=== PATIENT | male | born 1970 | race Two or more races ===

== ENCOUNTER 2016-12-28 13:13 | Emergency (ER) | payer OTHER ==
[~2016-12-28] VITALS: Ht 180.3 cm; Wt 117.0 kg
[~2016-12-28 13:13] MED LIST: ALBU25PO2; CLON0.5T3 PO; CLON1TAB3 PO; DIAZ2TAB PO; DIAZ2TAB3 PO; DIAZ5TAB4 PO; FLUT1DIS3; FLUT1DIS3 IH; HYDR12.58 PO; HYDR4TAB PO; LORA1TAB; LORA1TAB PO; LURA60TA PO; METF850T2 PO; METH10TA; METH10TA2 PO; METH40TA3 PO; NAPR250T; NICO1PAT2 TP; OXYC15TA PO; OXYC5TAB PO; PANT40GR; PANT40TA3 PO; POLY17PO5 PO; PRED20TA PO; VENTOLIN HFA18 GM; VENTOLIN HFA18 GM IH
[2016-12-28 13:27] VITALS: BP 139/84
--- NOTE | 2016-12-28 13:39 | PHYS DOC ---
Past Medical History Past Medical History: Bipolar, COPD, Depression, Diabetes-Type II, Diverticulitis, Heart Disease, Hypertension, Schizophrenia, Other Additional Past Medical Histor: chronic back pain, brain lesions, abdominal hernia Past Surgical History: Colectomy, Other Additional Past Surgical Histo: back surgery, ABD SX, BRAIN SX, Alcohol Use: None Drug Use: None Adult General Chief Complaint Chief Complaint: FLU SYMPTOM HPI HPI Patient is a 46 year old male who presents emergency room with complaint of an ongoing headache for approximately one and a half weeks. Patient denies any head injuries. He states that he does not take anticoagulant.. Reports that he has tenderness to palpation to the top of his head and extends down into his neck. He denies fevers or chills. Patient has been hospitalized within the past 30 days [facility] for healthcare acquired pneumonia. He was discharged approximately 2 weeks ago states she's been convalescing without difficulty. Patient states he saw his primary care doctor yesterday and was told that it was "stress related". He states that it seems to be "something else ". He does have a previous history of subdural hematoma. He denies previous craniotomies. Review of Systems Review of Systems Constitutional: Denies fever or chills [] Eyes: Denies change in visual acuity, redness, or eye pain [] HENT: Denies nasal congestion or sore throat [] Respiratory: Denies cough or shortness of breath [] Cardiovascular: No additional information not addressed in HPI [] GI: Denies abdominal pain, nausea, vomiting, bloody stools or diarrhea [] : Denies dysuria or hematuria [] Musculoskeletal: Denies back pain or joint pain [] Integument: Denies rash or skin lesions [] Neurologic: Denies headache, focal weakness or sensory changes [] Endocrine: Denies polyuria or polydipsia [] Current Medications Current Medications Current Medications Medications (Trade) Dose Ordered Sig/[facility] Start Time Stop Time Status Last Admin Dose Admin Diazepam (Valium) 10 mg 1X ONCE 12/28/16 13:45 12/28/16 13:46 DC 12/28/16 13:44 10 MG Ketorolac Tromethamine (Toradol Im) 60 mg 1X ONCE 12/28/16 13:45 12/28/16 13:46 DC 12/28/16 13:44 60 MG Allergies Allergies Allergies Coded Allergies Type Severity Reaction Last Updated Verified Latex, Natural Rubber Allergy Severe rash 07/22/15 Yes Haloperidol Lactate Allergy Intermediate 07/22/15 Yes Penicillins Allergy Intermediate 07/22/15 Yes adhesive Allergy Intermediate 07/22/15 Yes fentanyl Allergy Intermediate 07/22/15 Yes fish derived Allergy Intermediate SALMON 07/22/15 Yes haloperidol Allergy Intermediate 07/22/15 Yes iodine Allergy Intermediate rash 11/09/15 Yes latex Allergy Intermediate 07/22/15 Yes morphine Allergy Intermediate DILAUDID OK 07/22/15 Yes povidone-iodine Allergy Intermediate Pt only has allergy to topical iodine. He has had iv iodine 07/22/15 Yes Physical Exam Physical Exam Constitutional: Well developed, well nourished,mild distress, non-toxic appearance. Patient is afebrile. HENT: Normocephalic, atraumatic, bilateral external ears normal, oropharynx moist, no oral exudates, nose normal. Patient complains of tenderness to his frontal sinus region as well as scalp extending from his anterior hairline to the occipital region and down into his neck. Is no palpable defect appreciated. Eyes: PERRLA, EOMI, conjunctiva normal, no discharge. [] Neck: Normal range of motion, no tenderness, supple, no stridor. Negative Brudzinski's. To palpation to bilateral superior trapezius muscles from insertion of the occiput inferiorly to the masses. Trapezius. There is no palpable defect, deformity or spasm. There is no midline tenderness. Cardiovascular:Heart rate regular rhythm, no murmur [] Lungs & Thorax: Bilateral breath sounds clear to auscultation [] Abdomen: Bowel sounds normal, soft, no tenderness, no masses, no pulsatile masses. [] Skin: Warm, dry, no erythema, no rash. Back: No tenderness, no CVA tenderness. [] Extremities: No tenderness, no cyanosis, no clubbing, ROM intact, no edema. [] Neurologic: Alert and oriented X 3, cranial nerves II through XII are intact. Patient is able rapid alternating movement and [id number] without difficulty. Romberg is negative for pronator drift. Patient ambulates with a cane due to left knee pain. Psychologic: Affect normal, judgement normal, mood normal. [] Current Patient Data Vital Signs Vital Signs Date Time Temp Pulse Resp B/P Pulse Ox O2 Delivery O2 Flow Rate FiO2 12/28/16 13:27 98.0 83 22 139/84 94 Room Air 98.0 EKG EKG [] Radiology/Procedures Radiology/Procedures Noncontrast CT scan of patient's head was performed with adequate technique and interpreted by the radiologist. There is no evidence of acute intracranial process. There is mucosal thickening of the sphenoid and ethmoid sinuses but no evidence of perinasal sinusitis. Course & Med Decision Making Course & Med Decision Making Pertinent Labs and Imaging studies reviewed. (See chart for details) [] Dragon Disclaimer Dragon Disclaimer This electronic medical record was generated, in whole or in part, using a voice recognition dictation system. Departure Departure Impression: Primary Impression: Tension headache Additional Impression: Sinusitis Disposition: HOME, SELF-CARE Condition: GOOD Referrals: NO PCP (PCP) Patient Instructions: Sinusitis, [id number], Tension Headache, [id number] Additional Instructions: 1. The CT scan of your head shows no abnormalities to your brain are within your skull. There is some thickening of your sinuses. 2. Take the medication as prescribed. You can also use [id number] Afrin nasal spray twice a day for the next 3 days to help open your sinuses up. You can also take xjly-ldr-vvutdsa Mucinex D twice a day. 3. Review the discharge instructions provided for self-care and reasons to return to the emergency department. 4. Contact your primary care doctor's office this afternoon or Saturday to schedule follow-up appointment for reevaluation by midweek next week. Scripts Cyclobenzaprine Hcl 10 Mg Tablet1 Tab PO QHS muscle relaxer #21 TAB Prov:YAKOV GILBERT 12/28/16 Butalb/Acetaminophen/Caffeine (Fioricet 50-300-40 Mg Capsule)1 Each Capsule2 Each PO Q6HRS PRN HEADACHE #20 CAP Prov:YAKOV GILBERT 12/28/16 Problem Qualifiers YAKOV GILBERT Dec 28, 2016 13:39
[2016-12-28] MEDS ORDERED: DIAZEPAM 10 MG/2 ML DISP.SYRIN. IM ONE (13:45)
[2016-12-28] MEDS ORDERED: KETOROLAC TROMETHAMINE 60 MG/2 ML SYRINGE. IM ONE (13:45)
--- NOTE | 2016-12-28 14:12 | RAD ---
CT of the head without contrast, 12/28/2016: History: Headache Comparison is made to a study from 06/18/2015. The ventricles are within normal limits in size. There is no shift of the midline structures. There is no evidence of acute intracranial hemorrhage or mass effect. There is a unchanged calvarial defect in the left frontoparietal region which is likely postsurgical. There is mild mucosal thickening in the left sphenoid and both ethmoid sinuses. No free fluid is evident in the paranasal sinuses. IMPRESSION: No acute intracranial abnormality is detected. PQRS Compliance Statement: One or more of the following individualized dose reduction techniques were utilized for this examination: 1. Automated exposure control 2. Adjustment of the mA and/or kV according to patient size 3. Use of iterative reconstruction technique
[2016-12-28] MEDS ORDERED: BUTA1CAP29 PO (14:27)
[2016-12-28] MEDS ORDERED: CYCL10TA2 PO (14:27)
== END 2016-12-28 14:33 | disposition home or self-care (01) ==
LOC: ER 13:13
DX: G44.209 Tension-type headache, unspecified, not intractable (principal); J32.1 Chronic frontal sinusitis; F31.9 Bipolar disorder, unspecified; I10 Essential (primary) hypertension; F20.9 Schizophrenia, unspecified; J44.9 Chronic obstructive pulmonary disease, unspecified; E11.9 Type 2 diabetes mellitus without complications; G89.29 Other chronic pain; Z91.040 Latex allergy status; Z88.4 Allergy status to anesthetic agent; Z88.5 Allergy status to narcotic agent; Z88.0 Allergy status to penicillin; Z91.013 Allergy to seafood; Z88.8 Allergy status to other drugs, medicaments and biological substances; Z91.048 Other nonmedicinal substance allergy status
CPT/HCPCS: 70450; 96372; 99284; J1885; J3360

== ENCOUNTER 2018-03-11 22:29 | Emergency (ER) | payer OTHER ==
[2018-03-11 23:36] LABS: ADD MAN DIFF? NO
[2018-03-11 23:39] LABS: BASO # 0.1 x10^3/uL (0.0-0.2); BASO % 1 % (0-3); EOS # 0.3 x10^3/uL (0.0-0.7); EOS % 2 % (0-3); HEMATOCRIT 45.1 % (39.0-53.0); HEMOGLOBIN 15.6 g/dL (13.0-17.5); LYMPH # 4.3 x10^3/uL (1.0-4.8); LYMPH % 34 % (24-48); MEAN CORPUSCULAR HEMOGLOBIN 30 pg (25-35); MEAN CORPUSCULAR HGB CONC 35 g/dL (31-37); MEAN CORPUSCULAR VOLUME 87 fL (79-100); MONO # 0.9 x10^3/uL (0.0-1.1); MONO % 7 % (0-9); NEUT # 7.1 x10^3uL (1.8-7.7); NEUT % 56 % (31-73); PLATELET COUNT 261 x10^3/uL (140-400); RED BLOOD COUNT 5.17 x10^6/uL (4.30-5.70); WHITE BLOOD COUNT 12.7 x10^3/uL (4.0-11.0)
[2018-03-11] MEDS ORDERED: IPRATRPIUM/ALBUTEROL 0.5/2.5MG 3 ML NEBU. (23:39)
[2018-03-11] MEDS: IPRATRPIUM/ALBUTEROL 0.5/2.5MG 3 ML NEBU. NEB (23:44)
[2018-03-11 23:57] LABS: ANION GAP 4 (6-14); BLOOD UREA NITROGEN 9 mg/dL (8-26); BUN/CREATININE RATIO 11 (6-20); CALCIUM 8.6 mg/dL (8.5-10.1); CARBON DIOXIDE 30 mmol/L (21-32); CHLORIDE 103 mmol/L (98-107); CREATININE 0.8 mg/dL (0.7-1.3); GFR 104.5; GLUCOSE 280 mg/dL (70-99); POTASSIUM 3.5 mmol/L (3.5-5.1); SODIUM 137 mmol/L (136-145)
[2018-03-11 23:59] LABS: TROPONINI < 0.017 ng/mL (0.000-0.055)
[2018-03-12 00:02] LABS: ALBUMIN 3.5 g/dL (3.4-5.0); ALBUMIN/GLOBULIN RATIO 0.8 (1.0-1.7); ALK PHOS 268 U/L (46-116); ALT (SGPT) 129 U/L (16-63); AST (SGOT) 74 U/L (15-37); LIPASE 100 U/L (73-393); TOTAL BILIRUBIN 0.3 mg/dL (0.2-1.0); TOTAL PROTEIN 7.9 g/dL (6.4-8.2)
[2018-03-12] MEDS ORDERED: DOXYCYCLINE HYCLATE 100 MG in IV DEXTROSE 5% 100 ML IV (00:30)
[2018-03-12] MEDS: methylPREDNISolone SOD SUCC PF 125 MG/2 ML VIAL. IV (00:53)
[2018-03-12] MEDS: DOXYCYCLINE HYCLATE 100 MG TABLET PO (00:53)
[2018-03-12] MEDS: DOXYCYCLINE HYCLATE 100 MG in IV NORMAL SALINE 100ML 100 ML IV (00:53)
== END 2018-03-12 02:50 | disposition home or self-care (01) ==
LOC: ER 03-12 02:50
DX: J44.9 Chronic obstructive pulmonary disease, unspecified (principal); H92.03 Otalgia, bilateral; E11.9 Type 2 diabetes mellitus without complications; I10 Essential (primary) hypertension; G89.29 Other chronic pain; Z88.8 Allergy status to other drugs, medicaments and biological substances; Z91.041 Radiographic dye allergy status; Z91.040 Latex allergy status; Z88.5 Allergy status to narcotic agent; Z88.0 Allergy status to penicillin; Z91.013 Allergy to seafood
CPT/HCPCS: 36415; 71045; 80053; 83690; 84484; 85025; 93005; 94640; 96365; 96375; 99285-25; J2930; J3490; J7620

== ENCOUNTER → 2018-11-04 | Outpatient (CLI) | payer OTHER ==
[2018-03-12 02:13] VITALS: BP 125/59
[~2018-11-04] MED LIST changes: +BUTA1CAP29 PO; +CLON0.5T11 PO; -CLON0.5T3 PO; +CLON1TAB11 PO; -CLON1TAB3 PO; +CYCL10TA2 PO; +DOXY100T9 PO; -METF850T2 PO; +METF850T8 PO; -OXYC5TAB PO; +OXYC5TAB4 PO; -PANT40TA3 PO; +PANT40TA77 PO; +POLY17PO29 PO; -POLY17PO5 PO; +PRED50TA PO
--- NOTE | 2018-11-04 11:58 | RAD ---
Metastatic skeletal survey, 11/04/2018: HISTORY: Abnormal bone scan Multiple images of the bony skeleton were obtained on the following findings delineated: 1. A PA view of the chest reveals no rib abnormality. The heart size is normal and the lungs are clear. 2. AP and lateral views of the cervical spine reveal moderate anterior spurs and mild scattered facet joint arthropathy. No fracture or destructive bony lesion is seen. 3. AP and lateral views of the thoracic spine reveal moderate scattered spurs. No fracture or destructive bony lesion is seen. 5. AP and lateral views of the lumbar spine demonstrate a surgical clamp related to the spinous processes at L3-4. There is a radiopaque disc spacer at the L3-4 disc level. There are mild scattered marginal spurs. No fracture or destructive bony lesion is seen. 6. A lateral view of the skull demonstrates a lucency projected over the parietal region. 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 No additional calvarial abnormality is detected. 7. An AP view of the pelvis reveals mild spurring at both hip joints. No fracture or destructive bony lesion is seen. 8. AP views of both femurs and lower legs reveal no destructive bony lesion. 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 9. AP views of both humeri and forearms reveal no fracture or destructive bony lesion. There is mild arthritic change at both shoulders. IMPRESSION: 1. Scattered degenerative and postsurgical changes as described above. 2. No destructive bony lesion is identified. Electronically signed by: Steven Santos MD (11/04/2018 11:53 AM) [facility]
== END | disposition home or self-care (01) ==
LOC: RAD 10:11
PROVIDERS: ATTEND Internal Medicine Hematology & Oncology
DX: M46.06 Spinal enthesopathy, lumbar region (principal); M12.88 Other specific arthropathies, not elsewhere classified, other specified site; Z98.890 Other specified postprocedural states
CPT/HCPCS: 77075